=== PATIENT | female | born 1980 | race Two or more races ===

== ENCOUNTER 2025-05-28 07:48 | Outpatient (CLI) | payer OTHER ==
[2025-05-28 08:21] LABS: Hematocrit 41.9 % (36.0-46.0); Hemoglobin 14.3 g/dL (12.2-16.2); Mean Corpuscular Hemoglobin 30.6 pg (28.0-32.0); Mean Corpuscular Volume 89.4 fL (80.0-100.0); Nucleated Red Blood Cells % 0.1 %
[2025-05-28 08:22] LABS: Urine Budding Yeast OCCASIONAL /hpf (None Seen); Urine Protein, UAD Negative (Negative)
[2025-05-28 08:51] LABS: Alanine Aminotransferase 10 U/L (7-40); Albumin 4.3 g/dL (3.2-4.8); Alkaline Phosphatase 60 U/L (46-116); Anion Gap 10 (5-15); BUN/Creatinine Ratio 14.5 (10.0-20.0); Bilirubin, Total 0.4 mg/dL (0.2-1.0); Blood Urea Nitrogen 12 mg/dL (9-23); Calcium 9.0 mg/dL (8.7-10.4); Carbon Dioxide 27 mmol/L (20-31); Chloride 103 mmol/L (98-107); Glucose 91 mg/dL (74-106); Magnesium 1.8 mg/dL (1.6-2.6); Potassium 4.2 mmol/L (3.5-5.1); Sodium 140 mmol/L (136-145); Total Protein 7.2 g/dL (5.7-8.2); Triglycerides 112 mg/dL (< 150)
[2025-05-28 08:54] LABS: Cholesterol 246 mg/dL (< 200); HDL Cholesterol 88 mg/dL (40-59); Thyroid Stimulating Hormone 1.5 uIU/mL (0.55-4.78)
[2025-05-28 09:03] LABS: Free T3 2.84 pg/mL (2.3-4.2)
[2025-05-28 09:04] LABS: Free T4 (Free Thyroxine) 1.16 ng/dL (0.89-1.76)
[2025-05-28 10:11] LABS: Uric Acid 5.0 mg/dL (3.1-7.8)
== END 2025-05-28 17:00 | disposition home or self-care (01) ==
LOC: LAB 07:48
PROVIDERS: ATTEND Family Medicine
DX: D27.9 Benign neoplasm of unspecified ovary (principal); E78.2 Mixed hyperlipidemia; Z00.00 Encounter for general adult medical examination without abnormal findings; Z71.3 Dietary counseling and surveillance
CPT/HCPCS: 36415; 80053; 80061; 80198; 81001; 82043; 82306; 82607; 83036; 83615; 83735; 84403; 84439; 84443; 84480; 84481; 84550; 85025; 87086